=== PATIENT | female | born 1970 | race Caucasian/White ===

== ENCOUNTER → 2023-12-04 10:27 | Outpatient (REF) | payer BC, SELFPAY | LOC: RAD 10:27 | PROVIDERS: ATTENDING PHYSICIAN Nurse Practitioner | DX: M54.41 Lumbago with sciatica, right side (principal) | CPT/HCPCS: 72110 ==

== ENCOUNTER → 2024-07-08 11:08 | Outpatient (REF) | payer BC, SELFPAY | LOC: WDC 11:08 | PROVIDERS: ATTENDING PHYSICIAN Obstetrics & Gynecology; FAMILY PHYSICIAN Nurse Practitioner | DX: Z12.31 Encounter for screening mammogram for malignant neoplasm of breast (principal) | CPT/HCPCS: 77063; 77067 ==

== ENCOUNTER → 2024-07-20 08:45 | Outpatient (REF) | payer BC, SELFPAY | LOC: HWRAD 08:45 | PROVIDERS: ATTENDING PHYSICIAN Obstetrics & Gynecology; FAMILY PHYSICIAN Nurse Practitioner | DX: R10.32 Left lower quadrant pain (principal) | CPT/HCPCS: 76830; 76856 ==

== ENCOUNTER → 2024-07-26 08:10 | Outpatient (REF) | payer BC, SELFPAY ==
[2024-07-26 09:02] LABS: % Basophils 0.7 % (0-2); % Eosinophils 3.2 % (0-6); % Immature Granulocytes 0.3 % (0-0.5); % Lymphocytes 24.7 % (20.5-51.1); % Monocytes 7.9 % (1.7-9.3); % Neutrophils 63.2 % (42.2-75.2); Absolute Eosinophils 0.2 10^3/uL (0-0.7); Absolute Lymphocytes 1.5 10^3/uL (1.2-3.4); Absolute Monocytes 0.5 10^3/uL (0.1-0.6); Absolute Neutrophils 3.8 10^3/uL (1.4-6.5); Hemoglobin 12.8 g/dL (12.0-16.0); Mean Corp Hgb Conc. 33.7 g/dL (33.0-37.0); Mean Corpuscular Hgb 31.2 pg (27.0-31.0); Mean Corpuscular Volume 92.7 fL (81.0-99.0); Mean Platelet Volume 8.7 fL (7.4-10.4); Nucleated Red Blood Cells % 0 %; Platelet Count 374 10^3/uL (130-400); Red Cell Dist. Width 12.3 % (11.5-14.5)
[2024-07-26 10:24] LABS: ALT (SGPT) 21 U/L (0-35); AST (SGOT) 28 U/L (14-36); Albumin 4.8 g/dl (3.5-5.0); Alkaline Phosphatase 103 U/L (38-126); Blood Urea Nitrogen 15 mg/dl (7-17); Calcium 9.9 mg/dl (8.4-10.2); Carbon Dioxide 28 mmol/L (22-30); Chloride 103 mmol/L (98-107); Glucose 97 mg/dl (70-99); HDL Cholesterol 77 mg/dl; LDL Cholesterol, Calculated 159 mg/dl; Sodium 143 mmol/L (135-145); Total Bilirubin 0.4 mg/dl (0.2-1.3); Total Cholesterol 253 mg/dl (50-199); Total Protein 7.3 g/dl (6.3-8.2); Triglyceride 88 mg/dl (10-149); Very Low Density Lipoprotein 17 mg/dl (0-30); eGFR > 60.00
[2024-07-26 10:36] LABS: Vitamin D, 25-OH*** 43.9 ng/mL (30-80)
[2024-07-26 10:50] LABS: TSH 1.73 uIU/ml (0.47-4.68)
== END ==
LOC: REG 08:10
PROVIDERS: ATTENDING PHYSICIAN Nurse Practitioner
DX: E55.9 Vitamin D deficiency, unspecified (principal)
CPT/HCPCS: 36415; 80053; 80061; 82306; 84443; 85025

== ENCOUNTER → 2024-11-22 10:04 | Outpatient (REF) | payer BC, SELFPAY | LOC: RAD 10:04 | PROVIDERS: ATTENDING PHYSICIAN Nurse Practitioner | DX: E04.1 Nontoxic single thyroid nodule (principal) | CPT/HCPCS: 76536 ==

== ENCOUNTER → 2024-12-18 10:44 | Outpatient (REF) | payer BC, SELFPAY ==
[2024-12-18 11:38] LABS: % Basophils 0.4 % (0-2); % Eosinophils 2.5 % (0-6); % Immature Granulocytes 0.2 % (0-0.5); % Lymphocytes 27.3 % (20.5-51.1); % Monocytes 7.6 % (1.7-9.3); Absolute Eosinophils 0.1 10^3/uL (0-0.7); Absolute Lymphocytes 1.3 10^3/uL (1.2-3.4); Absolute Monocytes 0.4 10^3/uL (0.1-0.6); Hematocrit 35.9 % (37.0-47.0); Hemoglobin 12.1 g/dL (12.0-16.0); Mean Corp Hgb Conc. 33.7 g/dL (33.0-37.0); Mean Corpuscular Hgb 30.6 pg (27.0-31.0); Mean Corpuscular Volume 90.7 fL (81.0-99.0); Mean Platelet Volume 9.1 fL (7.4-10.4); Nucleated Red Blood Cells % 0 %; Platelet Count 353 10^3/uL (130-400); Red Blood Cell Count 3.96 10^6/uL (4.20-5.40); Red Cell Dist. Width 12.3 % (11.5-14.5); White Blood Cell Count 4.8 10^3/uL (4.8-10.8)
[2024-12-18 12:18] LABS: Iron 98 ug/dl (37-170)
[2024-12-18 12:28] LABS: Percent Saturation 43 % (20-50); Total Iron Binding Capacity 225 ug/dl (265-497)
== END ==
LOC: REG 10:44
PROVIDERS: ATTENDING PHYSICIAN Nurse Practitioner; REFERRING PHYSICIAN Nurse Practitioner Adult Health
DX: D50.8 Other iron deficiency anemias (principal)
CPT/HCPCS: 36415; 82728; 83540; 83550; 85025

== ENCOUNTER → 2025-01-22 08:57 | Outpatient (REF) | payer BC, SELFPAY ==
[2025-01-22 10:44] LABS: TSH 2.29 uIU/ml (0.47-4.68)
[2025-01-22 10:48] LABS: ALT (SGPT) 20 U/L (0-35); AST (SGOT) 25 U/L (14-36); Albumin 4.8 g/dl (3.5-5.0); Alkaline Phosphatase 100 U/L (38-126); Blood Urea Nitrogen 18 mg/dl (7-17); Calcium 9.7 mg/dl (8.4-10.2); Carbon Dioxide 25 mmol/L (22-30); Chloride 108 mmol/L (98-107); Glucose 101 mg/dl (70-99); HDL Cholesterol 67 mg/dl; LDL Cholesterol, Calculated 129 mg/dl; Potassium 4.3 mmol/L (3.5-5.1); Sodium 144 mmol/L (135-145); Total Bilirubin 0.4 mg/dl (0.2-1.3); Total Cholesterol 211 mg/dl (50-199); Total Protein 7.2 g/dl (6.3-8.2); Triglyceride 79 mg/dl (10-149); Very Low Density Lipoprotein 15 mg/dl (0-30); eGFR > 60.00
[2025-01-22 12:03] LABS: Glycohemoglobin (HgbA1c) 5.5 % (4.0-5.6)
[2025-01-22 14:04] LABS: Rheumatoid Agglutinin Less Than 10 IU (<10 IU)
[2025-01-24 01:56] LABS: ANA, IgG Reflex to HEp-2 None Detected (None Detected)
== END ==
LOC: REG 08:57
PROVIDERS: ATTENDING PHYSICIAN Nurse Practitioner
DX: Z01.89 Encounter for other specified special examinations (principal); E78.2 Mixed hyperlipidemia; M25.50 Pain in unspecified joint
CPT/HCPCS: 36415; 80053; 80061; 83036; 84443; 86038; 86430

== ENCOUNTER → 2025-02-12 07:35 | Outpatient (REF) | payer BC, SELFPAY | LOC: RCS 07:35 | PROVIDERS: ATTENDING PHYSICIAN Internal Medicine Cardiovascular Disease; FAMILY PHYSICIAN Nurse Practitioner | DX: I34.1 Nonrheumatic mitral (valve) prolapse (principal) | CPT/HCPCS: 93306 ==

== ENCOUNTER → 2025-02-28 10:42 | Outpatient (REF) | payer BC, SELFPAY ==
[2025-03-01 13:11] LABS: Lyme Antibody Screen, EIA Negative (Negative)
== END ==
LOC: REG 10:42
PROVIDERS: ATTENDING PHYSICIAN Nurse Practitioner
DX: W57.XXXA Bitten or stung by nonvenomous insect and other nonvenomous arthropods, initial encounter (principal)
CPT/HCPCS: 36415; 86618

== ENCOUNTER → 2025-03-07 06:58 | Outpatient (REF) | payer BC, SELFPAY | LOC: RAD 06:58 | PROVIDERS: ATTENDING PHYSICIAN Student in an Organized Health Care Education/Training Program; FAMILY PHYSICIAN Nurse Practitioner | DX: R10.32 Left lower quadrant pain (principal) | CPT/HCPCS: 74177; Q9967 ==

== ENCOUNTER 2025-04-10 06:26 | Day surgery (SDC) | payer BC, SELFPAY | END 2025-04-10 13:48 | disposition home or self-care (01) | LOC: GI 06:26 | PROVIDERS: ATTENDING PHYSICIAN Student in an Organized Health Care Education/Training Program | DX: Z12.11 Encounter for screening for malignant neoplasm of colon (principal); K64.4 Residual hemorrhoidal skin tags; Q43.8 Other specified congenital malformations of intestine; K52.9 Noninfective gastroenteritis and colitis, unspecified; K62.1 Rectal polyp; K62.89 Other specified diseases of anus and rectum; Z98.890 Other specified postprocedural states; Z86.0101 Personal history of adenomatous and serrated colon polyps | CPT/HCPCS: 45380; 88305 ==

== ENCOUNTER → 2025-10-09 06:38 | Outpatient (REF) | payer BC, SELFPAY ==
[2025-10-09 07:53] LABS: Hematocrit 37.8 % (37.0-47.0); Hemoglobin 12.6 g/dL (12.0-16.0); Mean Corp Hgb Conc. 33.3 g/dL (33.0-37.0); Mean Corpuscular Volume 90.0 fL (81.0-99.0); Nucleated Red Blood Cells % 0 %; Platelet Count 387 10^3/uL (130-400); Red Cell Dist. Width 12.4 % (11.5-14.5)
[2025-10-09 08:25] LABS: ALT (SGPT) 20 U/L (0-35); AST (SGOT) 29 U/L (14-36); Albumin 4.6 g/dl (3.5-5.0); Alkaline Phosphatase 118 U/L (38-126); Blood Urea Nitrogen 18 mg/dl (7-17); Calcium 9.3 mg/dl (8.4-10.2); Carbon Dioxide 26 mmol/L (22-30); Chloride 104 mmol/L (98-107); Glucose 98 mg/dl (70-99); HDL Cholesterol 81 mg/dl; LDL Cholesterol, Calculated 139 mg/dl; Potassium 4.2 mmol/L (3.5-5.1); Sodium 137 mmol/L (135-145); Total Protein 7.6 g/dl (6.3-8.2); Very Low Density Lipoprotein 15 mg/dl (0-30); eGFR > 60.00
[2025-10-09 08:40] LABS: Vitamin D, 25-OH*** 30.0 ng/mL (30-80)
[2025-10-09 08:51] LABS: TSH 3.47 uIU/ml (0.47-4.68)
[2025-10-09 09:10] LABS: Vitamin B12 259 pg/ml (239-931)
== END ==
LOC: REG 06:38
PROVIDERS: ATTENDING PHYSICIAN Nurse Practitioner
DX: F33.42 Major depressive disorder, recurrent, in full remission (principal); I34.0 Nonrheumatic mitral (valve) insufficiency; E55.9 Vitamin D deficiency, unspecified; N30.10 Interstitial cystitis (chronic) without hematuria; F41.9 Anxiety disorder, unspecified; E78.2 Mixed hyperlipidemia; R53.82 Chronic fatigue, unspecified
CPT/HCPCS: 36415; 80053; 80061; 82306; 82607; 84443; 85025